=== PATIENT | female | born 1975 | race African-American/Black ===

== ENCOUNTER 2024-04-05 17:09 | Inpatient (IN) | payer BC ==
[2024-04-05] VITALS (7 sets, daily range): BP systolic 99–111; BP diastolic 61–71; PULSE 88–135; RESP 20–25; O2SAT 98–100
[~2024-04-05] VITALS: Ht 167.6 cm; Wt 63.2 kg
[2024-04-05] MEDS: EPINEPHRINE 1:1000 1 MG/ML AMP INJ ONE (17:32)
[2024-04-05] MEDS: PROPOFOL 10MG/ML 100ML 100 ML IV ONE (17:32)
[2024-04-05] MEDS: DIPHENHYDRAMINE 50MG/ML VIAL IV ONE (17:32)
[2024-04-05] MEDS: SODIUM CHLORIDE 0.9% 1,000 ML IV ONE (17:33)
[2024-04-05] MEDS: FAMOTIDINE 20MG/2ML VIAL IV ONE (17:33)
[2024-04-05] MEDS: METHYLPREDNISOLONE SOD SUCC 125MG/2ML (ACT-O-VIAL) IV ONE (17:33)
[2024-04-05] MEDS ORDERED: MIDAZOLAM HCL 100 MG in DEXT 5% WATER 80 ML IV ONE (18:00)
[2024-04-05 18:07] LABS: BASOPHILS % 1.1 % (0.0-2.0); EOSINOPHILS % 2.4 % (0.0-5.0); HEMATOCRIT. 40.2 % (36.0-48.0); HEMOGLOBIN. 12.7 g/dL (12.0-16.0); LYMPHOCYTES % 66.7 % (20.0-50.0); MEAN CORPUSCULAR HGB CONC 31.7 g/dL (31.0-37.0); MEAN CORPUSCULAR VOLUME 94.6 fL (81.0-99.0); MEAN PLATELET VOLUME 9.4 fl (7.4-10.4); MONOCYTES % 5.5 % (2.0-8.0); NEUTROPHILS % 24.3 % (40.0-76.0); PLATELET 375 x1000/uL (130-400); RED BLOOD CELL COUNT 4.25 mill/uL (4.2-5.4); WHITE BLOOD COUNT 12.3 x1000/uL (4.5-11.0)
[2024-04-05 18:13] LABS: POTASSIUM 3.8 mEq/L (3.5-5.1)
[2024-04-05 18:17] LABS: HCG SCREEN NEGATIVE
[2024-04-05 18:19] LABS: CREATININE 1.1 mg/dL (0.6-1.0)
[2024-04-05] MEDS: MIDAZOLAM 100MG/100ML PREMIX IV PRN (18:41)
[2024-04-05] MEDS: FENTANYL CITRATE/PF 50MCG/ML 2ML VIAL IV ONE (18:41)
[2024-04-05] MEDS: IPRATROPIUM BROMIDE (0.02%) 0.5MG/2.5ML NEB HHN STA (18:42)
[2024-04-05] MEDS: ALBUTEROL (0.083%) 2.5MG/3ML NEB HHN STA (18:42)
[2024-04-05] MEDS ORDERED: FENTANYL 2500MCG/250ML PMX 250 ML IV ONE (18:45)
[2024-04-05 18:51] LABS: BG CARBOXYHEMOGLOBIN 0.3 % (0.5-1.5); BG DEOXYHEMOGLOBIN 0.4 % (0.0-5.0); BG FRACTION INSPIRED OXYGEN 70; BG HCO3 ACT 27.8 mmol/L (21.0-28.0); BG METHEMOGLOBIN 0.1 % (0.5-1.5); BG OXYGEN SATURATION 99.6 % (94.0-98.0); BG OXYHEMOGLOBIN 99.2 % (94.0-98.0); BG PCO2 60.6 mmHg (32.0-45.0); BG PO2 281.5 mmHg (83.0-108.0); BG SAMPLE SITE RIGHT RADIAL; BG TOTAL HEMOGLOBIN 12.4 g/dL (12.0-16.0); BG TOTAL RESPIRATORY RATE 20 b/min; BG VENT MODE VENT - AC
[2024-04-05] MEDS ORDERED: IPRATROPIUM/ALBUTEROL 0.5-3(2.5)MG/3ML NEB HHN PRN (20:00)
[2024-04-05] MEDS ORDERED: MAGNESIUM/ALUMINUM HYDROXIDE/SIMETHICONE 30ML UDC PO PRN (20:00)
[2024-04-05] MEDS ORDERED: ACETAMINOPHEN 325MG TABLET NG PRN (20:00)
[2024-04-05] MEDS: PROPOFOL 10MG/ML 100ML 100 ML IV PRN (20:07)
[2024-04-05 21:35] LABS: BG BASE EXCESS -2.9 mmol/L (-2.0-3.0); BG CARBOXYHEMOGLOBIN 0.3 % (0.5-1.5); BG DEOXYHEMOGLOBIN 0.5 % (0.0-5.0); BG FRACTION INSPIRED OXYGEN 45; BG HCO3 ACT 20.6 mmol/L (21.0-28.0); BG METHEMOGLOBIN 0.1 % (0.5-1.5); BG OXYGEN SATURATION 99.5 % (94.0-98.0); BG OXYHEMOGLOBIN 99.1 % (94.0-98.0); BG PH 7.426 (7.350-7.450); BG PO2 184.7 mmHg (83.0-108.0); BG SAMPLE SITE RIGHT BRACHIAL; BG TOTAL HEMOGLOBIN 12.7 g/dL (12.0-16.0); BG VENT MODE VENT - AC
[2024-04-06] VITALS (103 sets, daily range): BP systolic 87–143; BP diastolic 48–117; PULSE 85–122; RESP 11–35; TEMP 34.4472–37.503; O2SAT 90–100
[2024-04-06] MEDS: DEXT 5%/LACTATED RINGERS 1,000 ML IV SCH (01:26)
[2024-04-06] MEDS: ENOXAPARIN 40MG/0.4ML SYR SUBCUT SCH (01:26)
[2024-04-06 02:06] LABS: CLARITY URINE CLOUDY (CLEAR); COLOR URINE YELLOW (YELLOW); GLUCOSE URINE NEGATIVE (NEGATIVE); KETONES URINE NEGATIVE (NEGATIVE); LEUKOCYTE ESTERASE URINE NEGATIVE (NEGATIVE); NITRITE URINE NEGATIVE (NEGATIVE); OCCULT BLOOD URINE NEGATIVE (NEGATIVE); PH URINE 5.5 (4.5-8.0); PROTEIN URINE 2+ (NEGATIVE); UROBILINOGEN URINE 0.2 E.U./dL (0.2-1.0)
[2024-04-06] MEDS: IPRATROPIUM/ALBUTEROL 0.5-3(2.5)MG/3ML NEB HHN SCH (02:21)
[2024-04-06 02:25] LABS: *BARBITURATES SCREEN URINE NEGATIVE (NEGATIVE); *BENZODIAZEPINES SCREEN URINE PRESUMPTIVE POSITIVE (NEGATIVE); *COCAINE SCREEN URINE NEGATIVE (NEGATIVE); CANNABINOID URINE SCREEN PRESUMPTIVE POSITIVE (NEGATIVE); ECSTASY MDMA SCREEN URINE NEGATIVE (NEGATIVE); METHADONE URINE SCREEN NEGATIVE (NEGATIVE); OPIATES URINE SCREEN NEGATIVE (NEGATIVE); PHENCYCLIDINE URINE SCREEN NEGATIVE (NEGATIVE)
[2024-04-06 02:30] LABS: *AMPHETAMINES SCREEN URINE NEGATIVE (NEGATIVE)
[2024-04-06 03:33] LABS: RBC URINE 0-2 /hpf (0-2); SQUAMOUS EPITHELIAL CELL URINE NONE SEEN /lpf (RARE/1+)
[2024-04-06 03:34] LABS: BACTERIA URINE 1+
[2024-04-06] MEDS: METHYLPREDNISOLONE SOD SUCC 125MG/2ML (ACT-O-VIAL) IV SCH (05:50)
[2024-04-06] MEDS: DIPHENHYDRAMINE 50MG/ML VIAL IV PRN (06:16)
[2024-04-06 06:17] LABS: WHITE BLOOD COUNT 6.7 x1000/uL (4.5-11.0)
[2024-04-06 06:18] LABS: HEMATOCRIT. 36.6 % (36.0-48.0); HEMOGLOBIN. 14.9 g/dL (12.0-16.0); MEAN CORPUSCULAR HEMOGLOBIN 30.6 pg (28.0-32.0); MEAN CORPUSCULAR HGB CONC 33.3 g/dL (31.0-37.0); MEAN CORPUSCULAR VOLUME 91.7 fL (81.0-99.0); RED BLOOD CELL COUNT 3.88 mill/uL (4.2-5.4); RED CELL DISTRIBUTION WIDTH 13.6 % (11.6-14.6)
[2024-04-06 06:19] LABS: BASOPHILS % 0.1 % (0.0-2.0); LYMPHOCYTES % 9.9 % (20.0-50.0); MEAN PLATELET VOLUME 8.7 fl (7.4-10.4); MONOCYTES % 1.5 % (2.0-8.0); NEUTROPHILS % 88.5 % (40.0-76.0); PLATELET 377 x1000/uL (130-400)
[2024-04-06 06:38] LABS: CARBON DIOXIDE 17 mEq/L (21-32); CHLORIDE 104 mEq/L (98-107); SODIUM 138 mEq/L (136-145)
[2024-04-06 06:39] LABS: CALCIUM 9.4 mg/dL (8.7-10.4)
[2024-04-06 06:43] LABS: GLUCOSE 231 mg/dL (70-105)
[2024-04-06 06:44] LABS: LDL CHOLESTEROL 122 mg/dL (5-100); TRIGLYCERIDE 36 mg/dL (0-150); UREA NITROGEN BLOOD 14 mg/dL (9-23)
[2024-04-06 06:45] LABS: ALBUMIN 3.9 g/dL (3.2-4.8); CHOLESTEROL 224 mg/dL (<200)
[2024-04-06 06:46] LABS: HDL CHOLESTEROL 87 mg/dL (>65); T4 FREE 0.99 ng/dL (0.89-1.76); THYROID STIMULATING HORMONE 0.17 uIU/mL (0.55-4.78)
[2024-04-06 06:47] LABS: TROPONIN I HIGH SENSITIVITY 36 ng/L (3.0-34)
[2024-04-06] MEDS: FAMOTIDINE 20MG/2ML VIAL IV SCH (09:17)
[2024-04-06] MEDS: KCL 20MEQ/100ML PREMIX 100 ML IV SCH (09:17)
[2024-04-06 09:28] LABS: BG BASE EXCESS -3.3 mmol/L (-2.0-3.0); BG CARBOXYHEMOGLOBIN 0.3 % (0.5-1.5); BG DEOXYHEMOGLOBIN 3.5 % (0.0-5.0); BG FRACTION INSPIRED OXYGEN 45; BG HCO3 ACT 21.4 mmol/L (21.0-28.0); BG METHEMOGLOBIN 0.3 % (0.5-1.5); BG OXYGEN SATURATION 96.5 % (94.0-98.0); BG OXYHEMOGLOBIN 95.9 % (94.0-98.0); BG PCO2 37.4 mmHg (32.0-45.0); BG PH 7.375 (7.350-7.450); BG PO2 89.3 mmHg (83.0-108.0); BG SAMPLE SITE RIGHT RADIAL; BG TOTAL HEMOGLOBIN 12.5 g/dL (12.0-16.0); BG VENT MODE VENT - AC
[2024-04-06] MEDS ORDERED: RACEPINEPHRINE 2.25% 0.5ML NEB VIAL HHN PRN (11:15)
[2024-04-06] MEDS: DEXMEDETOMIDINE 400 MCG/100 ML 100 ML IV PRN (12:03)
[2024-04-06 12:31] LABS: BG BASE EXCESS -3.6 mmol/L (-2.0-3.0); BG CARBOXYHEMOGLOBIN 0.3 % (0.5-1.5); BG DEOXYHEMOGLOBIN 2.5 % (0.0-5.0); BG FRACTION INSPIRED OXYGEN 45; BG HCO3 ACT 20.2 mmol/L (21.0-28.0); BG METHEMOGLOBIN 0.3 % (0.5-1.5); BG OXYGEN SATURATION 97.5 % (94.0-98.0); BG OXYHEMOGLOBIN 96.9 % (94.0-98.0); BG PCO2 32.9 mmHg (32.0-45.0); BG PH 7.407 (7.350-7.450); BG PO2 97.9 mmHg (83.0-108.0); BG SAMPLE SITE RIGHT RADIAL; BG TOTAL HEMOGLOBIN 12.8 g/dL (12.0-16.0); BG VENT MODE VENT - CPAP
[2024-04-06] MEDS ORDERED: DEXTROSE 50% WATER 50ML SYRINGE IV PRN (15:30)
[2024-04-06] MEDS: BLOOD SUGAR DIAGNOSTIC STRIP TEST SCH (15:30)
[2024-04-06] MEDS: INSULIN LISPRO 100 UNITS/ML SUBCUT SCH (18:20)
[2024-04-06] MEDS: LEVOFLOXACIN 500MG PREMIX 100 ML IV SCH (20:00)
[2024-04-06] MEDS: PROPOFOL 10MG/ML 100ML 100 ML IV PRN (20:02)
[2024-04-06 20:30] LABS: CREATINE KINASE MB FRACTION 6.1 ng/mL (0.5-3.6)
[2024-04-06] MEDS: DIPHENHYDRAMINE 50MG/ML VIAL IV SCH (21:36)
[2024-04-06] MEDS: ATORVASTATIN CALCIUM 40MG TABLET PO SCH (21:36)
[2024-04-07] VITALS (104 sets, daily range): BP systolic 123–175; BP diastolic 84–131; PULSE 63–105; RESP 12–29; TEMP 34.33608–37.66968; O2SAT 91–100
[2024-04-07 01:37] LABS: CREATINE KINASE MB FRACTION 3.8 ng/mL (0.5-3.6)
[2024-04-07] MEDS: DOCUSATE SODIUM 100MG CAPSULE PO PRN (06:00)
[2024-04-07] MEDS: CLONIDINE 0.1MG TABLET PO PRN (06:06)
[2024-04-07 06:42] LABS: HEMATOCRIT 35.5 % (36.0-48.0); MEAN CORPUSCULAR HEMOGLOBIN 30.8 pg (28.0-32.0); MEAN CORPUSCULAR HGB CONC 33.8 g/dL (31.0-37.0); PLATELET 304 x1000/uL (130-400); RED CELL DISTRIBUTION WIDTH 14.1 % (11.6-14.6); WHITE BLOOD COUNT 17.9 x1000/uL (4.5-11.0)
[2024-04-07 06:46] LABS: CARBON DIOXIDE 23 mEq/L (21-32); CHLORIDE 110 mEq/L (98-107); POTASSIUM 4.1 mEq/L (3.5-5.1); SODIUM 142 mEq/L (136-145)
[2024-04-07 06:47] LABS: CALCIUM 9.5 mg/dL (8.7-10.4)
[2024-04-07 06:50] LABS: CREATINE KINASE MB FRACTION 2.5 ng/mL (0.5-3.6)
[2024-04-07 06:52] LABS: CREATININE 0.8 mg/dL (0.6-1.0); GLUCOSE 165 mg/dL (70-105)
[2024-04-07 06:53] LABS: TRIGLYCERIDE 61 mg/dL (0-150); UREA NITROGEN BLOOD 12 mg/dL (9-23)
[2024-04-07 06:54] LABS: PHOSPHORUS 3.5 mg/dL (2.5-4.9)
[2024-04-07] MEDS ORDERED: GADOTERATE MEGLUMINE 5 MMOL/10 ML VIAL IV ONE (10:29)
[2024-04-07] MEDS ORDERED: DIPHENHYDRAMINE 50MG/ML VIAL IV PRN (13:00)
[2024-04-07] MEDS: METHYLPREDNISOLONE SOD SUCC 40MG/ML (ACT-O-VIAL) IV SCH (15:59)
[2024-04-07] MEDS: HYDRALAZINE 20MG/ML VIAL IV NR (16:00)
[2024-04-07] MEDS: AMLODIPINE 10MG TABLET PO NR (16:00)
[2024-04-07] MEDS ORDERED: HYDRALAZINE 20MG/ML VIAL IV PRN (17:15)
[2024-04-07] MEDS: ONDANSETRON HCL 4MG/2ML INJ IV PRN (17:17)
[2024-04-07] MEDS: PROPOFOL 10MG/ML 100ML 100 ML IV PRN (19:31)
[2024-04-07] MEDS: FAMOTIDINE 20MG/2ML VIAL IV SCH (20:30)
[2024-04-08] VITALS (72 sets, daily range): BP systolic 100–157; BP diastolic 48–106; PULSE 75–123; RESP 7–28; TEMP 35.61396–37.28076; O2SAT 92–100
[2024-04-08 05:56] LABS: HEMATOCRIT. 36.1 % (36.0-48.0); MEAN CORPUSCULAR HEMOGLOBIN 30.5 pg (28.0-32.0); MEAN CORPUSCULAR HGB CONC 33.4 g/dL (31.0-37.0); MEAN CORPUSCULAR VOLUME 91.3 fL (81.0-99.0); MEAN PLATELET VOLUME 8.5 fl (7.4-10.4); PLATELET 323 x1000/uL (130-400); RED BLOOD CELL COUNT 3.95 mill/uL (4.2-5.4); RED CELL DISTRIBUTION WIDTH 14.4 % (11.6-14.6)
[2024-04-08 06:01] LABS: DIFFERENTIAL COMMENT 1
[2024-04-08 06:04] LABS: CHLORIDE 109 mEq/L (98-107); POTASSIUM 3.2 mEq/L (3.5-5.1); SODIUM 142 mEq/L (136-145)
[2024-04-08 06:05] LABS: CALCIUM 8.8 mg/dL (8.7-10.4); CARBON DIOXIDE 25 mEq/L (21-32)
[2024-04-08 06:10] LABS: CREATININE 0.7 mg/dL (0.6-1.0); GLUCOSE 149 mg/dL (70-105)
[2024-04-08 06:11] LABS: TRIGLYCERIDE 69 mg/dL (0-150); UREA NITROGEN BLOOD 10 mg/dL (9-23)
[2024-04-08 06:12] LABS: CREATINE KINASE 146 IU/L (34-145)
[2024-04-08] MEDS: GUAIFENESIN 200MG/10ML SUGAR FREE UDC PO PRN (06:22)
[2024-04-08] MEDS ORDERED: MONT-46 PO (08:07)
[2024-04-08] MEDS ORDERED: SENN-362 MT (08:07)
[2024-04-08] MEDS ORDERED: HYDR-4001 MT (08:07)
[2024-04-08] MEDS ORDERED: METO-385 MT (08:07)
[2024-04-08] MEDS ORDERED: BISA-145 PO (08:07)
[2024-04-08] MEDS: AMLODIPINE 10MG TABLET PO SCH (08:16)
[2024-04-08] MEDS: METOPROLOL SUCCINATE 50MG ER TABLET PO SCH (11:52)
[2024-04-08] MEDS: ACETAMINOPHEN 325MG TABLET NG PRN (14:10)
[2024-04-08] MEDS: POTASSIUM CHLORIDE 20MEQ TABLET SR PO NR (14:10)
[2024-04-08 15:53] LABS: PLATELET ESTIMATE NORMAL
[2024-04-08] MEDS: BLOOD SUGAR DIAGNOSTIC STRIP TEST SCH (17:35)
[2024-04-08] MEDS: CLONIDINE 0.1MG TABLET PO PRN (20:06)
[2024-04-08] MEDS: KETOROLAC 15MG/ML VIAL IV NR (20:43)
[2024-04-08] MEDS: METHYLPREDNISOLONE SOD SUCC 125MG/2ML (ACT-O-VIAL) IV SCH (22:05)
[2024-04-09] VITALS (44 sets, daily range): BP systolic 118–159; BP diastolic 77–110; PULSE 67–106; RESP 12–26; TEMP 36.55848–36.78072; O2SAT 93–100
[2024-04-09 04:14] LABS: CARBON DIOXIDE 29 mEq/L (21-32); CHLORIDE 107 mEq/L (98-107); POTASSIUM 3.3 mEq/L (3.5-5.1); SODIUM 142 mEq/L (136-145)
[2024-04-09 04:15] LABS: CALCIUM 8.8 mg/dL (8.7-10.4)
[2024-04-09 04:20] LABS: CREATININE 0.7 mg/dL (0.6-1.0); GLUCOSE 124 mg/dL (70-105); UREA NITROGEN BLOOD 14 mg/dL (9-23)
[2024-04-09 04:39] LABS: HEMOGLOBIN 11.5 g/dL (12.0-16.0); MEAN CORPUSCULAR HEMOGLOBIN 30.6 pg (28.0-32.0); MEAN CORPUSCULAR HGB CONC 33.8 g/dL (31.0-37.0); MEAN CORPUSCULAR VOLUME 90.7 fL (81.0-99.0); PLATELET 301 x1000/uL (130-400); RED BLOOD CELL COUNT 3.75 mill/uL (4.2-5.4); RED CELL DISTRIBUTION WIDTH 14.1 % (11.6-14.6); WHITE BLOOD COUNT 10.6 x1000/uL (4.5-11.0)
[2024-04-09] MEDS: DILTIAZEM HCL 180MG CAPSULE ER 24HR PO SCH (10:03)
[2024-04-09] MEDS: FAMOTIDINE 20MG/2ML VIAL IV SCH (10:03)
[2024-04-09] MEDS ORDERED: METH4TAB95 MT (13:41)
[2024-04-09] MEDS ORDERED: EPIN0.3P3 IM (13:41)
[2024-04-09] MEDS: LEVOFLOXACIN 750MG PREMIX 150 ML IV SCH (14:00)
[2024-04-09] MEDS ORDERED: METHYLPREDNISOLONE SOD SUCC 125MG/2ML (ACT-O-VIAL) IV SCH (16:00)
== END 2024-04-09 16:30 | disposition home or self-care (01) | DRG 915 ==
LOC: ER 17:09 → EDBD 17:09 → CVICU 19:26 → EDBEDREQTM 19:54 → EDBEDREQ 19:54
PROVIDERS: ADMIT Internal Medicine; ATTEND Internal Medicine
PROC: 5A1945Z Respiratory Ventilation, 24-96 Consecutive Hours (ICD-10-PCS; principal; 2024-04-05)
PROC: 0BH17EZ Insertion of Endotracheal Airway into Trachea, Via Natural or Artificial Opening (ICD-10-PCS; 2024-04-05)
DX: T78.2XXA Anaphylactic shock, unspecified, initial encounter (principal); A41.9 Sepsis, unspecified organism; G92.8 Other toxic encephalopathy; J96.01 Acute respiratory failure with hypoxia; J69.0 Pneumonitis due to inhalation of food and vomit; I21.A1 Myocardial infarction type 2; N17.9 Acute kidney failure, unspecified; J45.901 Unspecified asthma with (acute) exacerbation; T78.3XXA Angioneurotic edema, initial encounter; E78.5 Hyperlipidemia, unspecified; E87.6 Hypokalemia; R73.9 Hyperglycemia, unspecified; E05.90 Thyrotoxicosis, unspecified without thyrotoxic crisis or storm; I10 Essential (primary) hypertension; T78.1XXA Other adverse food reactions, not elsewhere classified, initial encounter; F12.90 Cannabis use, unspecified, uncomplicated; G35 Multiple sclerosis; Z88.0 Allergy status to penicillin; Y92.89 Other specified places as the place of occurrence of the external cause; Z91.010 Allergy to peanuts; Z79.899 Other long term (current) drug therapy
CPT/HCPCS: 31500; 36415; 36600; 70553; 71045; 80048; 80061; 80305; 81003; 82040; 82375; 82550; 82553; 82805; 82962; 83036; 83735; 84100; 84439; 84443; 84478; 84481; 84484; 84703; 85025; 85027; 93970; 94003; 94640; 99285; A9577; J0360; J1200; J1650; J1815; J1885; J1956; J2250; J2405; J2704; J2919; J2920; J3010; J3480; J3490; J7030; J7060; Q9957